=== PATIENT | male | born 1980 | race Caucasian/White ===

== ENCOUNTER → 2024-08-17 | Outpatient (CLI) | payer OTHER, SELFPAY ==
[2024-08-17 18:02] LABS: Syphilis Antibodies Non-reactive
== END | disposition home or self-care (01) ==
LOC: MTLAB 16:26
PROVIDERS: Referring Provider Physician Assistant; Visit Provider Physician Assistant
DX: L30.9 Dermatitis, unspecified (principal); R30.0 Dysuria
CPT/HCPCS: 36415; 86780; 87491; 87591